=== PATIENT | female | born 1970 | race Caucasian/White ===

== ENCOUNTER 2017-04-16 11:13 | Observation (INO) | payer BC ==
[2017-04-16 10:48] LABS: BASOPHIL % 0.2 % (0.0-0.4); Bilirubin SMALL (NEGATIVE); COMPLETE URINE MICROSCOPIC? YES; Collection Type CCMS; Glucose NEGATIVE (NEGATIVE); Granulocytes % 77.2 % (36.0-66.0); Leukocyte Esterase 2+ (NEGATIVE); Lymphocytes % 13.8 % (24.0-44.0); Mean Cell Volume 84.8 fl (78-100); Mean Corpuscular Hemoglobin 27.2 pg (26-32); Mean Platelet Volume 8.5 fl (6-9.5); Monocytes % 7.8 % (0.0-12.0); Platelet Count 232 K/mm3 (150-450); Red Cell Distribution Width 14.1 % (11.5-14.0); White Blood Count 9.3 K/mm3 (4.0-10.5)
[2017-04-16 10:49] LABS: Bacteria MANY /HPF (NEGATIVE); Epithelial Cells MANY /HPF (FEW); WBC 15-25 /HPF (0-5)
--- NOTE | 2017-04-16 11:07 | XRAY ---
Indication: Left chest wall pain with edema to axilla. Comparison: February 19, 2016. PA/lateral chest demonstrates new left hilar opacity/fullness that warrants further evaluation with CT chest with contrast exam. Remaining heart, lungs, and bony thorax unremarkable.
[2017-04-16 11:13] LABS: ALBUMIN 3.7 g/dL (3.4-5.0); ALKALINE PHOSPHATASE 80 U/L (46-116); ANION GAP 14.3 MEQ/L (5-15); BLOOD UREA NITROGEN 8 mg/dL (9-20); CHLORIDE 101 mEq/L (98-107); Carbon Dioxide 27.6 mEq/L (21-32); Glucose 120 MG/DL (70-110); Potassium 4.2 mEq/L (3.5-5.1); SGOT/AST 20 U/L (15-37); SGPT/ALT 31 U/L (12-78); SODIUM 139 mEq/L (136-145); Total Protein 8.1 gm/dL (6.4-8.2)
[2017-04-16 11:14] LABS: TROPONIN < 0.017 ng/ml (0.000-0.056)
[2017-04-16] MEDS ORDERED: Nitrostat 0.4 MG (ED) SL ONE ×2 (11:39→12:05)
[2017-04-16] MEDS ORDERED: Sodium Chloride 0.9% 1000 ML 1,000 ML IV STA (11:39)
[2017-04-16] MEDS ORDERED: BABY ASPIRIN 81 MG CHEW PO ONE (11:39)
[2017-04-16] MEDS ORDERED: MORPHINE SULFATE 4 MG INJ IV ONE (11:44)
[2017-04-16] MEDS ORDERED: Zofran 4 MG/2 ML VIAL IV ONE (11:44)
[2017-04-16] MEDS ORDERED: ROCEPHIN 2 Gm-D5w 50ML BAG** 2 G/50 ML IVPB IV ONE ×2 (11:51→12:05)
[2017-04-16 12:00] LABS: INR 1.3 (0.8-3.0); PROTIME 14.7 SECONDS (9.95-12.35)
[2017-04-16] MEDS ORDERED: Zofran 4 MG/2 ML VIAL ONE (12:05)
[2017-04-16] MEDS ORDERED: BABY ASPIRIN 81 MG CHEW ONE (12:05)
[2017-04-16] MEDS ORDERED: Sodium Chloride 0.9% 1000 ML 1,000 ML ONE (12:05)
[2017-04-16] MEDS ORDERED: MORPHINE SULFATE 4 MG INJ ONE (12:06)
--- NOTE | 2017-04-16 12:08 | ERPHSYRPT ---
- History of Present Illness Time Seen by Provider: 04/16/17 11:45 Historian: patient Exam Limitations: clinical condition Patient Subjective Stated Complaint: cp fever Triage Nursing Assessment: lt side cp for 2 days. nausea for 2 days. fever since yesterday with headache. [facility] sent pt here. on arrival, pt c/o slight headache and pinpoint nonradiating lt cp. deneis injury. skin warm and dry. nausea with no vomiting Physician History: PATIENT COMPLAINS OF LEFT SIDED SHARP PAINS IN LEFT CHEST FOR 2 DAYS, ASSOCIATE WITH DYSPNEA AND PAIN UPON EXERTION, FEVER, URGENCY WITH FREQUENCY. DENIES RADIATION OF PAIN TO NECK, JAW OR ARMS. Timing/Duration: day(s) Activities at Onset: none Quality: sharpness, stabbing Location: other (LEFT PARASTERNAL) Severity of Pain-Max: moderate Severity of Pain-Current: moderate Modifying Factors: Improves With: change in position, other (INSPIRATION) Associated Symptoms: hurts to breathe Prior Chest Pain/Cardiac Workup: stress test Nitro Today/Relief: 0.4 mg x 1, provided by ED Aspirin Treatment Today: no aspirin today, 81 mg x 4, provided by ED Allergies/Adverse Reactions: codeine Adverse Reaction (Verified 04/16/17 11:25) Vomiting Hx Tetanus, Diphtheria Vaccination/Date Given: Yes Hx Influenza Vaccination/Date Given: No Hx Pneumococcal Vaccination/Date Given: No Immunizations Up to Date: Yes - Review of Systems Constitutional: Fever Eyes: No Symptoms Ears, Nose, & Throat: No Symptoms Respiratory: No Symptoms, No Cough, No Dyspnea Cardiac: Chest Pain, No Edema, No Syncope Abdominal/Gastrointestinal: No Symptoms, No Abdominal Pain, No Nausea, No Vomiting, No Diarrhea Genitourinary Symptoms: Dysuria, Frequency Musculoskeletal: No Back Pain, No Neck Pain Skin: No Rash Neurological: No Symptoms, No Dizziness, No Focal Weakness, No Sensory Changes Psychological: No Symptoms Endocrine: No Symptoms All Other Systems: Reviewed and Negative - Past Medical History Pertinent Past Medical History: Yes Neurological History: No Pertinent History ENT History: No Pertinent History Cardiac History: No Pertinent History Respiratory History: No Pertinent History Endocrine Medical History: No Pertinent History, Hypothyroidism Musculoskeletal History: Fractures GI Medical History: No Pertinent History History: Other Psycho-Social History: No Pertinent History Female Reproductive Disorders: No Pertinent History Other Medical History: UTI, STATES HOSPITALIZED A CHILD FOR KIDNEY PROBLEMS BUT UNSURE OF DETAILS, ANKLE FRACTURE - Past Surgical History Past Surgical History: Yes Neuro Surgical History: No Pertinent History Cardiac: No Pertinent History Respiratory: No Pertinent History Gastrointestinal: Appendectomy Genitourinary: No Pertinent History Musculoskeletal: Orthopedic Surgery Female Surgical History: No Pertinent History Other Surgical History: ANKLE FRACTURE-hardware - Social History Smoking Status: Never smoker Exposure to second hand smoke: No Drug Use: none Patient Lives Alone: No - Female History Hx Last Menstrual Period: 1 week - Nursing Vital Signs Nursing Vital Signs: Initial Vital Signs Temperature 99.5 F 04/16/17 11:18 Pulse Rate 102 H 04/16/17 11:18 Respiratory Rate 18 04/16/17 11:18 Blood Pressure 137/86 04/16/17 11:18 O2 Sat by Pulse Oximetry 96 04/16/17 11:18 Pain Scale Pain Intensity 0 - Physical Exam General Appearance: no apparent distress, alert Eye Exam: PERRL/EOMI, eyes nml inspection Ears, Nose, Throat Exam: normal ENT inspection, moist mucous membranes Neck Exam: normal inspection, non-tender, supple, full range of motion Respiratory Exam: normal breath sounds, chest tenderness (MARKED TENDERNESS LEFT LATERAL CHEST WALL 4TH TO 6TH ICS), lungs clear, No respiratory distress Cardiovascular Exam: regular rate/rhythm, normal heart sounds Gastrointestinal/Abdomen Exam: soft, normal bowel sounds, No tenderness, No mass Back Exam: normal inspection, No CVA tenderness, No vertebral tenderness Extremity Exam: normal inspection, normal range of motion Neurologic Exam: alert, oriented x 3, cooperative, normal mood/affect, sensation nml, No motor deficits Skin Exam: normal color, warm, dry SpO2 Interpretation: normal SpO2: 96 Oxygen Delivery: Room Air - Course EKG Interpreted by Me: RATE, Sinus Rhythm, Sinus Tach (INTRAVENTRICULAR CONDUCTION DELAY), Left Bundle Branch Block - Radiology Exams Chest X-ray Interpretation: Discussed w/ radiologist - CT Exams Chest CT Interpretation: Discussed w/radiologist (LEFT UPPER LOBE CONSOLIDATING AIRSPACE DISEASE WITH TINY EFFUSION ) Ordered Tests: Active Orders 24 hr Category Date Time Status Up Ad Monica ROUTINE Activity 04/16/17 14:56 Ordered Admission/Status Order ROUTINE Care 04/16/17 14:56 Ordered Breast Trimmer STAT Care 04/16/17 11:39 Active Code Status Order ROUTINE Care 04/16/17 14:56 Ordered IV Care Q6H Care 04/16/17 14:56 Ordered IV Insertion STAT Care 04/16/17 11:48 Active Oxygen-ED Only NASAL CANNULA 2 lpm Care 04/16/17 11:39 Active Ibrahima Hernandez, Apply ROUTINE Care 04/16/17 14:56 Ordered Telemetry ROUTINE Care 04/16/17 14:56 Ordered Vital Signs Q4H Care 04/16/17 14:56 Ordered Weight,Daily 0600 Care 04/16/17 14:56 Ordered Regular Diet Diet 04/16/17 Dinner Ordered CHEST 2 VIEWS (PA AND LAT) Routine Exams 04/16/17 Completed CTA CHEST W AND/OR WO [CT] Stat Exams 04/16/17 12:08 Completed BLOOD CULTURE Stat Lab 04/16/17 12:10 Received CBC W DIFF Stat Lab 04/16/17 10:27 Completed CMP Stat Lab 04/16/17 10:27 Completed D-DIMER QUANTITATION Stat Lab 04/16/17 10:27 Completed NT PRO BNP Stat Lab 04/16/17 10:27 Completed PROTIME WITH INR Stat Lab 04/16/17 11:39 Completed TROPONIN Q3H Lab 04/16/17 11:45 Completed TROPONIN Q3H Lab 04/16/17 14:45 Ordered TROPONIN Q3H Lab 04/16/17 17:45 Ordered TROPONIN Q3H Lab 04/16/17 20:45 Ordered TROPONIN Q3H Lab 04/16/17 23:45 Ordered TROPONIN Stat Lab 04/16/17 10:27 Completed TSH, 3RD Generation Stat Lab 04/16/17 10:27 Completed UA W/ MICROSCOPIC Stat Lab 04/16/17 10:27 Completed EKG ONCE RT 04/16/17 10:56 Completed Oxygen NASAL CANNULA 2 lpm RT 04/16/17 14:56 Ordered Pulse Oximetry CONTINUOUS RT 04/16/17 14:58 Ordered Transfer Order Routine Transfer 04/16/17 14:55 Ordered Medication Summary Discontinued Medications Generic Name Dose Route Start Last Admin Trade Name Freq PRN Reason Stop Dose Admin Aspirin 324 mg 04/16/17 11:39 04/16/17 12:08 Baby Aspirin 81 Mg Chew PO 04/16/17 11:40 324 mg STAT ONE Administration Aspirin Confirm 04/16/17 12:05 Baby Aspirin 81 Mg Chew Administered 04/16/17 12:06 Dose 324 mg .ROUTE .STK-MED ONE Sodium Chloride 1,000 mls @ 500 mls/hr 04/16/17 11:39 04/16/17 12:11 Sodium Chloride 0.9% 1000 Ml IV 04/16/17 13:38 500 mls/hr .Q2H STA Administration Ceftriaxone Sodium/Dextrose 2 g in 50 mls @ 100 mls/hr 04/16/17 11:51 12:16 Rocephin 2 Gm-D5w 50ml Bag IV 04/16/17 12:20 100 mls/hr STAT ONE Administration Sodium Chloride Confirm 04/16/17 12:05 Sodium Chloride 0.9% 1000 Ml Administered 04/16/17 12:06 Dose 1,000 mls @ ud .ROUTE .STK-MED ONE Ceftriaxone Sodium/Dextrose Confirm 04/16/17 12:05 Rocephin 2 Gm-D5w 50ml Bag Administered 04/16/17 12:06 Dose 2 g in 50 mls @ ud IV .STK-MED ONE Azithromycin 500 mg in 250 mls @ 250 mls/hr 04/16/17 13:40 04/16/17 13:48 Zithromax 500 Mg/ 250 Ml Nacl Premix IV 04/16/17 14:39 250 mls/hr STAT STA Administration Azithromycin Confirm 04/16/17 13:44 Zithromax 500 Mg/ 250 Ml Nacl Premix Administered 04/16/17 13:45 Dose 500 mg in 250 mls @ ud IV .STK-MED ONE Azithromycin Confirm 04/16/17 13:46 Zithromax 500 Mg/ 250 Ml Nacl Premix Administered 04/16/17 13:47 Dose 500 mg in 250 mls @ ud IV .STK-MED ONE Morphine Sulfate 4 mg 04/16/17 11:44 04/16/17 12:14 Morphine Sulfate 4 Mg Inj IV 04/16/17 11:45 4 mg STAT ONE Administration Morphine Sulfate Confirm 04/16/17 12:06 Morphine Sulfate 4 Mg Inj Administered 04/16/17 12:07 Dose 4 mg .ROUTE .STK-MED ONE Nitroglycerin 0.4 mg 04/16/17 11:39 04/16/17 12:11 Nitrostat 0.4 Mg (Ed) SL 04/16/17 11:40 0.4 mg STAT ONE Administration Nitroglycerin Confirm 04/16/17 12:05 Nitrostat 0.4 Mg (Ed) Administered 04/16/17 12:06 Dose 0.4 mg SL .STK-MED ONE Ondansetron HCl 4 mg 04/16/17 11:44 04/16/17 12:11 Zofran 4 Mg/2 Ml Vial IV 04/16/17 11:45 4 mg STAT ONE Administration Ondansetron HCl Confirm 04/16/17 12:05 Zofran 4 Mg/2 Ml Vial Administered 04/16/17 12:06 Dose 4 mg .ROUTE .STK-MED ONE Lab/Rad Data: Laboratory Result Diagrams 04/16/17 10:27 04/16/17 10:27 Laboratory Results 04/16/17 04/16/17 04/16/17 Range/Units 11:45 11:39 10:27 WBC (4.0-10.5) K/mm3 RBC (4.1-5.4) M/mm3 Hgb (12.0-16.0) gm/dl Hct (35-47) % MCV (78-100) fl MCH (26-32) pg MCHC (32-36) g/dl RDW (11.5-14.0) % Plt Count (150-450) K/mm3 MPV (6-9.5) fl Gran % (36.0-66.0) % Lymphocytes % (24.0-44.0) % Monocytes % (0.0-12.0) % Eosinophils % (0.00-5.0) % Basophils % (0.0-0.4) % Basophils # (0-0.4) INR 1.30 (0.8-3.0) D-Dimer (0-500) ng/mL Sodium (136-145) mEq/L Potassium (3.5-5.1) mEq/L Chloride (98-107) mEq/L Carbon Dioxide (21-32) mEq/L Anion Gap (5-15) MEQ/L BUN (9-20) mg/dL Creatinine (0.55-1.30) mg/dl Estimated GFR ML/MIN Glucose (70-110) MG/DL Calcium (8.5-10.1) mg/dL Total Bilirubin (0.2-1.0) mg/dL AST (15-37) U/L ALT (12-78) U/L Alkaline Phosphatase (46-116) U/L Troponin I < 0.017 (0.000-0.056) ng/ml NT-Pro-B Natriuret Pep (0-125) pg/ml Serum Total Protein (6.4-8.2) gm/dL Albumin (3.4-5.0) g/dL TSH 3rd Generation (0.358-3.740) mIU/L Ur Collection Type CCMS Urine Color YELLOW (YELLOW) Urine Appearance HAZY (CLEAR) Urine pH 5.0 (5-6) Ur Specific [place] 1.015 (1.005-1.025) Urine Protein 1+ (Negative) Urine Ketones SMALL (NEGATIVE) Urine Blood 5-10 (0-5) Irving/ul Urine Nitrite POSITIVE (NEGATIVE) Urine Bilirubin SMALL (NEGATIVE) Urine Urobilinogen NORMAL (0-1) mg/dL Ur Leukocyte Esterase 2+ (NEGATIVE) Urine Microscopic RBC 0-2 (0-2) /HPF Urine Microscopic WBC 15-25 (0-5) /HPF Ur Epithelial Cells MANY (FEW) /HPF Urine Bacteria MANY (NEGATIVE) /HPF Urine Glucose NEGATIVE (NEGATIVE) mg/dL Specimen Received 04/16/17 1027 04/16/17 04/16/17 04/16/17 Range/Units 10:27 10:27 10:27 WBC 9.3 (4.0-10.5) K/mm3 RBC 4.60 (4.1-5.4) M/mm3 Hgb 12.5 (12.0-16.0) gm/dl Hct 39.0 (35-47) % MCV 84.8 (78-100) fl MCH 27.2 (26-32) pg MCHC 32.1 (32-36) g/dl RDW 14.1 H (11.5-14.0) % Plt Count 232 (150-450) K/mm3 MPV 8.5 (6-9.5) fl Gran % 77.2 H (36.0-66.0) % Lymphocytes % 13.8 L (24.0-44.0) % Monocytes % 7.8 (0.0-12.0) % Eosinophils % 1.0 (0.00-5.0) % Basophils % 0.2 (0.0-0.4) % Basophils # 0.02 (0-0.4) INR (0.8-3.0) D-Dimer 355 (0-500) ng/mL Sodium 139 (136-145) mEq/L Potassium 4.2 (3.5-5.1) mEq/L Chloride 101 (98-107) mEq/L Carbon Dioxide 27.6 (21-32) mEq/L Anion Gap 14.3 (5-15) MEQ/L BUN 8 L (9-20) mg/dL Creatinine 1.10 (0.55-1.30) mg/dl Estimated GFR 56 ML/MIN Glucose 120 H (70-110) MG/DL Calcium 9.5 (8.5-10.1) mg/dL Total Bilirubin 1.10 H (0.2-1.0) mg/dL AST 20 (15-37) U/L ALT 31 (12-78) U/L Alkaline Phosphatase 80 (46-116) U/L Troponin I < 0.017 (0.000-0.056) ng/ml NT-Pro-B Natriuret Pep 29 (0-125) pg/ml Serum Total Protein 8.1 (6.4-8.2) gm/dL Albumin 3.7 (3.4-5.0) g/dL TSH 3rd Generation 1.083 (0.358-3.740) mIU/L Ur Collection Type Urine Color (YELLOW) Urine Appearance (CLEAR) Urine pH (5-6) Ur Specific [place] (1.005-1.025) Urine Protein (Negative) Urine Ketones (NEGATIVE) Urine Blood (0-5) Irving/ul Urine Nitrite (NEGATIVE) Urine Bilirubin (NEGATIVE) Urine Urobilinogen (0-1) mg/dL Ur Leukocyte Esterase (NEGATIVE) Urine Microscopic RBC (0-2) /HPF Urine Microscopic WBC (0-5) /HPF Ur Epithelial Cells (FEW) /HPF Urine Bacteria (NEGATIVE) /HPF Urine Glucose (NEGATIVE) mg/dL Specimen Received - Progress Progress Note: 04/16/17 12:39 PATIENT GIVEN IV NORMAL SALINE AT 500ML/HR, NITROGLYCERIN 0.4MG SL, ZOFRAN 4MG, MORPHNE 4MG IV, AND AFTER 2 SETS OF BLOOD CULTURES OBTAIN, ROCEPHIN 2GM IVPB FOLLOWED BY ZITHROMAX 500MG IVPB 04/16/17 13:37 Blood Culture(s) Obtained: Yes Antibiotics given: Yes Discussed with : Geno (DISCUSSED WITH DR SKINNER AT 1450 FOR ADMISSION) - Departure Time of Disposition: 15:00 Departure Disposition: Observation Clinical Impression: PNEMONIA, URINARY TRACT INFECTION, ACUTE CHEST PAIN Condition: Stable Critical Care Time: No Referrals: MARINE SERRANO [Primary Care Provider] -
--- NOTE | 2017-04-16 13:22 | XRAY ---
Indication: Sharp left chest pain, tiredness, and headache for 2 days. Abnormal chest x-ray. High blood pressure. Conventional contrast enhanced CTA chest was performed using 80 cc Isovue 370 contrast. Two-dimensional sagittal and coronal reformatted images obtained. Comparison: None Heart is not enlarged. Aorta is normal in course and caliber without aneurysm/dissection. No central pulmonary embolus or pathologic mediastinal/hilar/axillary lymphadenopathy. Examination of the lung parenchyma demonstrates mid left upper lobe consolidating air space opacity anteriorly with air bronchograms and tiny effusion. Minimal left lung base atelectasis/scarring. Tiny right apical calcified granuloma. Bony thorax intact with mild degenerative changes throughout the spine. Limited upper abdomen demonstrates fatty liver, 14.2 cm splenomegaly, and partially visualized gallstones, the largest measuring 2.8 cm. Impression: 1. Left upper lobe consolidating airspace disease with tiny effusion corresponding to the chest radiograph finding. 2. Remaining CTA chest is negative. 2. Incidental fatty liver, splenomegaly, and gallstones. CT DI 28.13
[2017-04-16] MEDS ORDERED: Zithromax 500 MG/ 250 ML NaCl Premix 500 MG/250 ML IVPB IV STA (13:40)
[2017-04-16] MEDS ORDERED: Zithromax 500 MG/ 250 ML NaCl Premix 500 MG/250 ML IVPB IV ONE ×2 (13:44→13:46)
[2017-04-16] MEDS ORDERED: DUONEB 0.5-3 MG/3 ml Neb IH SCH (15:00)
[2017-04-16] MEDS ORDERED: Nitrostat 0.4 MG Tablet SL PRN (15:41)
[2017-04-16] MEDS: TYLENOL 325 MG PO PRN (15:54)
[2017-04-16] MEDS: Sodium Chloride 0.9% 1000 ML 1,000 ML IV SCH (16:00)
[2017-04-16] MEDS ORDERED: DUONEB 0.5-3 MG/3 ml Neb IH PRN (16:34)
[2017-04-16] MEDS: Norco 10/325 MG Tablet PO PRN (18:55)
[2017-04-17] MEDS: Sodium Chloride 0.9% 1000 ML 1,000 ML IV SCH ×3 (01:04→23:24)
[2017-04-17] MEDS: Norco 10/325 MG Tablet PO PRN ×2 (03:08→11:36)
[2017-04-17] MEDS: SYNTHROID 25 MCG PO SCH (10:17)
[2017-04-17] MEDS: ROCEPHIN 1 Gm-D5w 50 ml Bag** 1 G/50 ML IVPB IV SCH (10:21)
[2017-04-17] MEDS: Zithromax 500 MG/ 250 ML NaCl Premix 500 MG/250 ML IVPB IV SCH (11:04)
--- NOTE | 2017-04-17 12:17 | PCM.HP ---
History of Present Illness - Chief Complaint Chief Complaint: Pneumonia, UTI, Acute chest pain History of Present Illness: is a 47 year old female.left side chest pain for 2 days. nausea for 2 days. fever since yesterday with headache. went to [facility] and [facility] sent pt here - Review of Systems Constitutional: No Fever, No Chills Eyes: No Symptoms Ears, Nose, & Throat: No Symptoms Respiratory: No Cough, No Short Of Breath Cardiac: Chest Pain, No Edema, No Syncope Abdominal/Gastrointestinal: No Abdominal Pain, No Nausea, No Vomiting, No Diarrhea Genitourinary Symptoms: No Dysuria Musculoskeletal: No Back Pain, No Neck Pain Skin: No Rash Neurological: No Dizziness, No Focal Weakness, No Sensory Changes Psychological: No Symptoms Endocrine: No Symptoms Hematologic/Lymphatic: No Symptoms Immunological/Allergic: No Symptoms Medications & Allergies Home Medications: Home Medication List Levothyroxine Sodium 25 Mcg [Synthroid 25 Mcg] 25 mcg PO DAILY #0 tablet 02/20/16 [Rx Confirmed 04/16/17] Allergies/Adverse Reactions: Allergies Allergy/AdvReac Type Severity Reaction Status Date / Time codeine AdvReac Vomiting Verified 04/16/17 15:15 - Past Medical History Past Medical History: No Neurological History: No Pertinent History ENT History: No Pertinent History Cardiac History: No Pertinent History Respiratory History: Pneumonia Endocrine Medical History: No Pertinent History, Hypothyroidism Musculoskelatal History: Fractures GI Medical History: No Pertinent History History: Other Pyscho-Social History: No Pertinent History Reproductive Disorders: No Pertinent History Comment: STATES HOSPITALIZED A CHILD FOR KIDNEY PROBLEMS BUT UNSURE OF DETAILS, ANKLE FRACTURE - Female History Hx Last Menstrual Period: 1 week Are you now?: No - Past Surgical History Past Surgical History: Yes Neuro Surgical History: No Pertinent History Cardiac History: No Pertinent History Respiratory Surgery: No Pertinent History GI Surgical History: Appendectomy Genitourinary Surgical Hx: No Pertinent History Musculskeletal Surgical Hx: Orthopedic Surgery Female Surgical History: No Pertinent History Other Surgical History: ANKLE FRACTURE-hardware - Social History Smoking Status: Never smoker Exposure to second hand smoke: No Alcohol: None Drug Use: none - Physical Exam Vital Signs: Vital Signs - 24 hr Temp Pulse Resp BP Pulse Ox 04/17/17 08:25 81 18 98 04/17/17 08:00 18 04/17/17 07:25 97.9 F 79 20 120/57 99 04/17/17 04:00 98.4 F 91 H 17 117/72 94 L 04/16/17 23:53 99.1 F 97 H 18 108/72 97 04/16/17 20:00 98.9 F 109 H 15 95/50 97 04/16/17 16:35 93 H 18 98 04/16/17 15:16 99.6 F 94 H 18 111/62 98 04/16/17 15:00 96 04/16/17 14:47 93 H 18 103/66 100 04/16/17 14:18 54 L 18 123/72 100 04/16/17 13:13 92 H 18 139/65 04/16/17 12:20 97 H 18 136/67 96 Oxygen-Last 24 hours O2 Percentage 2 Liters = 28% O2 Percentage 2 Liters = 28% O2 Percentage 2 Liters = 28% O2 Percentage 2 Liters = 28% O2 Percentage 2 Liters = 28% O2 Percentage 2 Liters = 28% General Appearance: no apparent distress, alert Neurologic Exam: alert, oriented x 3, cooperative, normal mood/affect, nml cerebellar function, nml station & gait, sensation nml, No motor deficits Eye Exam: PERRL/EOMI, eyes nml inspection Ears, Nose, Throat Exam: normal ENT inspection, TMs normal, pharynx normal, moist mucous membranes Neck Exam: normal inspection, non-tender, supple, full range of motion Respiratory Exam: crackles/rales, rhonchi, No respiratory distress Cardiovascular Exam: regular rate/rhythm, normal heart sounds, normal peripheral pulses Gastrointestinal/Abdomen Exam: soft, normal bowel sounds, No tenderness, No mass Back Exam: normal inspection, normal range of motion, No CVA tenderness, No vertebral tenderness Extremity Exam: normal inspection, normal range of motion, pelvis stable Skin Exam: normal color, warm, dry, No rash Lymphatic Exam: No adenopathy Results - Labs Lab/Micro Results: Lab Results-Last 24 Hours 04/16/17 04/16/17 04/16/17 Range/Units 15:05 17:54 21:00 Troponin I < 0.017 < 0.017 < 0.017 (0.000-0.056) ng/ml 04/16/17 Range/Units 23:55 Troponin I < 0.017 (0.000-0.056) ng/ml Microbiology 04/16/17 18:15 Urine Culture - Preliminary Urine, Void <10K NORMAL SKIN VIDYA PROBABLE SKIN CONTAMINANT - Other Procedures and Tests Respiratory Therapy 04/16/17 14:56 Oxygen NASAL CANNULA 2 lpm 04/16/17 16:14 Respiratory Nebulizer UD Assessment/Plan (1) Pneumonia Current Visit: Yes Status: Acute Qualifiers: Pneumonia type: due to unspecified organism Laterality: left Lung location: upper lobe of lung Qualified Code(s): J18.1 - Lobar pneumonia, unspecified organism Code(s): J18.9 - PNEUMONIA, UNSPECIFIED ORGANISM (2) UTI (urinary tract infection) Current Visit: Yes Status: Acute Qualifiers: Urinary tract infection type: acute pyelonephritis Qualified Code(s): N10 - Acute pyelonephritis Code(s): N39.0 - URINARY TRACT INFECTION, SITE NOT SPECIFIED
[2017-04-17] MEDS: CORTISPORIN EAR DROPS Solution 1OML OT SCH ×3 (12:47→21:14)
[2017-04-17] MEDS: solu-MEDROL 40 MG IV SCH ×2 (13:45→21:13)
[2017-04-18] MEDS: TYLENOL 325 MG PO PRN (03:26)
[2017-04-18] MEDS: solu-MEDROL 40 MG IV SCH ×2 (05:32→12:51)
--- NOTE | 2017-04-18 08:29 | PCM.NOTE ---
Date and Time: 04/18/17826 Subjective Assessment: doing ok - Review of Systems Constitutional: No Fever, No Chills Eyes: No Symptoms Ears, Nose, & Throat: No Symptoms Respiratory: Short Of Breath, Wheezing, No Cough Cardiac: Chest Pain, No Edema, No Syncope Abdominal/Gastrointestinal: No Abdominal Pain, No Nausea, No Vomiting, No Diarrhea Genitourinary Symptoms: No Dysuria Musculoskeletal: No Back Pain, No Neck Pain Skin: No Rash Neurological: No Dizziness, No Focal Weakness, No Sensory Changes Psychological: No Symptoms Endocrine: No Symptoms Hematologic/Lymphatic: No Symptoms Immunological/Allergic: No Symptoms Objective Exam General Appearance: mild distress, alert Neurologic Exam: alert, oriented x 3, cooperative, normal mood/affect, nml cerebellar function, sensation nml, No motor deficits Skin Exam: normal color, warm, dry Eye Exam: PERRL, EOMI, eyes nml inspection Ears, Nose, Throat Exam: normal ENT inspection, pharynx normal, moist mucous membranes Neck Exam: normal inspection, non-tender, supple, full range of motion Respiratory Exam: diminished breath sounds, crackles/rales, rhonchi, wheezing, No respiratory distress Cardiovascular Exam: regular rate/rhythm, normal heart sounds Gastrointestinal/Abdomen Exam: soft, No tenderness, No mass Extremity Exam: normal inspection, normal range of motion Back Exam: normal inspection, normal range of motion, No CVA tenderness, No vertebral tenderness Pelvic Exam: deferred Rectal Exam: deferred OBJECTIVE DATA Vital Signs: Vital Signs - 24 hr Temp Pulse Resp BP Pulse Ox 04/18/17 07:35 91 H 16 97 04/18/17 07:28 97.7 F 80 18 126/65 95 04/18/17 03:59 97.9 F 80 18 123/58 95 04/18/17 00:00 97.9 F 74 16 103/54 93 L 04/17/17 20:00 97.7 F 90 16 99/57 93 L 04/17/17 19:43 65 18 94 L 04/17/17 16:00 16 04/17/17 15:27 98 F 84 18 99/60 97 04/17/17 12:21 98.4 F 82 18 98/58 98 04/17/17 12:00 18 Pain Assessment - Last Documented Pain Intensity 4 Pain Scale Used 0-10 Pain Scale Intake and Output: Intake & Output 04/15/17 04/16/17 04/17/17 04/18/17 11:59 11:59 11:59 11:59 Intake Total 2328 2043 Balance 2328 2043 Weight 117.934 kg 120.247 kg Radiology Exams: 0012 CT/CTA CHEST W AND/OR WO Indication: Sharp left chest pain, tiredness, and headache for 2 days. Abnormal chest x-ray. High blood pressure. Conventional contrast enhanced CTA chest was performed using 80 cc Isovue 370 contrast. Two-dimensional sagittal and coronal reformatted images obtained. Comparison: None Heart is not enlarged. Aorta is normal in course and caliber without aneurysm/dissection. No central pulmonary embolus or pathologic mediastinal/hilar/axillary lymphadenopathy. Examination of the lung parenchyma demonstrates mid left upper lobe consolidating air space opacity anteriorly with air bronchograms and tiny effusion. Minimal left lung base atelectasis/scarring. Tiny right apical calcified granuloma. Bony thorax intact with mild degenerative changes throughout the spine. Limited upper abdomen demonstrates fatty liver, 14.2 cm splenomegaly, and partially visualized gallstones, the largest measuring 2.8 cm. Impression: 1. Left upper lobe consolidating airspace disease with tiny effusion corresponding to the chest radiograph finding. 2. Remaining CTA chest is negative. 2. Incidental fatty liver, splenomegaly, and gallstones Assessment/Plan (1) Pneumonia Current Visit: Yes Status: Acute Qualifiers: Pneumonia type: due to unspecified organism Laterality: left Lung location: upper lobe of lung Qualified Code(s): J18.1 - Lobar pneumonia, unspecified organism Assessment & Plan: Chief Complaint Diagnosis Pneumonia, UTI, Acute chest pain Allergies Allergy/AdvReac Type Severity Reaction Status Date / Time codeine AdvReac Vomiting Verified 04/16/17 15:15 Vital Signs (Last 24 hours) Temp Pulse Resp BP Pulse Ox 04/18/17 07:35 91 H 16 97 04/18/17 07:28 97.7 F 80 18 126/65 95 04/18/17 03:59 97.9 F 80 18 123/58 95 04/18/17 00:00 97.9 F 74 16 103/54 93 L 04/17/17 20:00 97.7 F 90 16 99/57 93 L 04/17/17 19:43 65 18 94 L 04/17/17 16:00 16 04/17/17 15:27 98 F 84 18 99/60 97 04/17/17 12:21 98.4 F 82 18 98/58 98 04/17/17 12:00 18 Current Medications Generic Name Dose Route Start Last Admin Trade Name Freq PRN Reason Stop Dose Admin Acetaminophen 650 mg 04/16/17 14:59 04/18/17 03:26 Tylenol 325 Mg PO 05/16/17 14:58 650 mg Q4H PRN PRN Administration PAIN AND/OR FEVER Hydrocodone Bitart/Acetaminophen 1 tab 04/16/17 15:41 04/17/17 11:36 [place] 10/325 Mg Tablet PO 04/21/17 15:40 1 tab Q4H PRN PRN Administration Albuterol/Ipratropium 3 ml 04/16/17 16:34 Duoneb 0.5-3 Mg/3 Ml Neb IH 05/16/17 16:33 Q4HPRN PRN SHORTNESS OF BREATH/WHEEZING Azithromycin 500 mg in 250 mls @ 250 mls/hr 04/17/17 10:00 04/17/17 11:04 Zithromax 500 Mg/ 250 Ml Nacl Premix IV 05/17/17 09:59 250 mls/hr Q24H10 MARY Administration Ceftriaxone Sodium/Dextrose 1 g in 50 mls @ 100 mls/hr 04/17/17 10:00 10:21 Rocephin 1 Gm-D5w 50 Ml Bag IV 05/17/17 09:59 100 mls/hr Q24H10 MARY Administration Sodium Chloride 1,000 mls @ 100 mls/hr 04/16/17 15:00 04/17/17 23:24 Sodium Chloride 0.9% 1000 Ml IV 05/16/17 14:59 100 mls/hr .Q10H MARY Administration Levothyroxine Sodium 25 mcg 04/17/17 10:00 04/17/17 10:17 Synthroid 25 Mcg PO 05/17/17 09:59 25 mcg QAM MARY Administration Methylprednisolone Sodium Succinate 40 mg 04/17/17 14:00 04/18/17 05:32 Solu-Medrol 40 Mg IV 05/17/17 13:59 40 mg Q8HT MARY Administration Neomycin/Polymyxin/Hydrocortisone 10 ml 04/17/17 13:00 04/17/17 21:14 Cortisporin Ear Drops Solution 1oml OT 05/17/17 12:59 10 ml QID MARY Administration Nitroglycerin 0.4 mg 04/16/17 15:41 Nitrostat 0.4 Mg Tablet SL 05/16/17 15:40 PRN PRN Discontinued Medications Generic Name Dose Route Start Last Admin Trade Name Frekalpana PRN Reason Stop Dose Admin Albuterol/Ipratropium 3 ml 04/16/17 15:00 04/16/17 16:04 Duoneb 0.5-3 Mg/3 Ml Neb IH 05/16/17 14:59 3 ml Q4HRT MARY Administration Aspirin 324 mg 04/16/17 11:39 04/16/17 12:08 Baby Aspirin 81 Mg Chew PO 04/16/17 11:40 324 mg STAT ONE Administration Aspirin Confirm 04/16/17 12:05 Baby Aspirin 81 Mg Chew Administered 04/16/17 12:06 Dose 324 mg .ROUTE .STK-MED ONE Sodium Chloride 1,000 mls @ 500 mls/hr 04/16/17 11:39 04/16/17 12:11 Sodium Chloride 0.9% 1000 Ml IV 04/16/17 13:38 500 mls/hr .Q2H STA Administration Ceftriaxone Sodium/Dextrose 2 g in 50 mls @ 100 mls/hr 04/16/17 11:51 12:16 Rocephin 2 Gm-D5w 50ml Bag IV 04/16/17 12:20 100 mls/hr STAT ONE Administration Sodium Chloride Confirm 04/16/17 12:05 Sodium Chloride 0.9% 1000 Ml Administered 04/16/17 12:06 Dose 1,000 mls @ ud .ROUTE .STK-MED ONE Ceftriaxone Sodium/Dextrose Confirm 04/16/17 12:05 Rocephin 2 Gm-D5w 50ml Bag Administered 04/16/17 12:06 Dose 2 g in 50 mls @ ud IV .STK-MED ONE Azithromycin 500 mg in 250 mls @ 250 mls/hr 04/16/17 13:40 04/16/17 13:48 Zithromax 500 Mg/ 250 Ml Nacl Premix IV 04/16/17 14:39 250 mls/hr STAT STA Administration Azithromycin Confirm 04/16/17 13:44 Zithromax 500 Mg/ 250 Ml Nacl Premix Administered 04/16/17 13:45 Dose 500 mg in 250 mls @ ud IV .STK-MED ONE Azithromycin Confirm 04/16/17 13:46 Zithromax 500 Mg/ 250 Ml Nacl Premix Administered 04/16/17 13:47 Dose 500 mg in 250 mls @ ud IV .STK-MED ONE Morphine Sulfate 4 mg 04/16/17 11:44 04/16/17 12:14 Morphine Sulfate 4 Mg Inj IV 04/16/17 11:45 4 mg STAT ONE Administration Morphine Sulfate Confirm 04/16/17 12:06 Morphine Sulfate 4 Mg Inj Administered 04/16/17 12:07 Dose 4 mg .ROUTE .STK-MED ONE Nitroglycerin 0.4 mg 04/16/17 11:39 04/16/17 12:11 Nitrostat 0.4 Mg (Ed) SL 04/16/17 11:40 0.4 mg STAT ONE Administration Nitroglycerin Confirm 04/16/17 12:05 Nitrostat 0.4 Mg (Ed) Administered 04/16/17 12:06 Dose 0.4 mg SL .STK-MED ONE Ondansetron HCl 4 mg 04/16/17 11:44 04/16/17 12:11 Zofran 4 Mg/2 Ml Vial IV 04/16/17 11:45 4 mg STAT ONE Administration Ondansetron HCl Confirm 04/16/17 12:05 Zofran 4 Mg/2 Ml Vial Administered 04/16/17 12:06 Dose 4 mg .ROUTE .STK-MED ONE Intake & Output (Last 24 hours) 04/15/17 04/16/17 04/17/17 04/18/17 11:59 11:59 11:59 11:59 Intake Total 2328 2043 Balance 2328 2043 Weight 114.305 kg 117.934 kg 120.247 kg Microbiology Results (Last 24 hours) 04/16/17 18:15 Urine, Void Urine Culture - Preliminary <10K NORMAL SKIN VIDYA PROBABLE SKIN CONTAMINANT Orders (Last 24 hours) Category Date Time Status Azithromycin 500 mg/250 ml [Zithromax 500 MG/ 250 ML Med 04/17/17 10:00 Active NaCl Premix] 500 mg in 250 ml IV Q24H10 Ceftriaxone 1 GM/50 ML PREMIX* [ROCEPHIN 1 Gm-D5w 50 ml Med 04/17/17 10:00 Active Bag] 1 g in 50 ml IV Q24H10 Levothyroxine Sodium 25 Mcg [Synthroid 25 Mcg] Med 04/17/17 10:00 Active 25 mcg PO QAM Methylprednisolone Sod Suc 40M [solu-MEDROL 40 MG] Med 04/17/17 14:00 Active 40 mg IV Q8HT Sean/Baci/Poly/Hc Ear Solution* [CORTISPORIN EAR DROPS Med 04/17/17 13:00 Active Solution 1OML] 10 ml OT QID Incentive Spirometry Assessmen UD RT 04/17/17 19:43 Active Patient Care Notes (Last 24 hours) 04/17/17 12:22 Nursing Note by Pam Cruz dr. at bedside Initialized on 04/17/17 12:22 - END OF NOTE Code(s): J18.9 - PNEUMONIA, UNSPECIFIED ORGANISM (2) UTI (urinary tract infection) Current Visit: Yes Status: Acute Qualifiers: Urinary tract infection type: acute pyelonephritis Qualified Code(s): N10 - Acute pyelonephritis Code(s): N39.0 - URINARY TRACT INFECTION, SITE NOT SPECIFIED
[2017-04-18] MEDS: SYNTHROID 25 MCG PO SCH (09:30)
[2017-04-18] MEDS: ROCEPHIN 1 Gm-D5w 50 ml Bag** 1 G/50 ML IVPB IV SCH (09:30)
[2017-04-18] MEDS: CORTISPORIN EAR DROPS Solution 1OML OT SCH ×2 (09:30→12:51)
[2017-04-18 10:30] LABS: Mean Cell Volume 83.6 fl (78-100); Mean Corpuscular Hemoglobin 27.3 pg (26-32); Mean Platelet Volume 8.7 fl (6-9.5); Platelet Count 265 K/mm3 (150-450); Red Cell Distribution Width 13.2 % (11.5-14.0); White Blood Count 12.4 K/mm3 (4.0-10.5)
--- NOTE | 2017-04-18 10:36 | XRAY ---
Indication: Pneumonia. Empyema. Comparison: April 16, 2017. PA/lateral chest demonstrates minimally worsening CT proven left upper lobe airspace opacity and tiny effusion. Remaining heart and right lung unremarkable.
[2017-04-18] MEDS: Zithromax 500 MG/ 250 ML NaCl Premix 500 MG/250 ML IVPB IV SCH (10:53)
[2017-04-18 11:52] LABS: ALBUMIN 2.9 g/dL (3.4-5.0); ALKALINE PHOSPHATASE 86 U/L (46-116); ANION GAP 15.3 MEQ/L (5-15); BLOOD UREA NITROGEN 8 mg/dL (9-20); CHLORIDE 104 mEq/L (98-107); Carbon Dioxide 25.3 mEq/L (21-32); Glucose 218 MG/DL (70-110); Potassium 3.8 mEq/L (3.5-5.1); SGOT/AST 34 U/L (15-37); SGPT/ALT 41 U/L (12-78); SODIUM 141 mEq/L (136-145); Total Protein 7.3 gm/dL (6.4-8.2)
[2017-04-18 12:11] VITALS: BP 133/62; PULSE 90; O2SAT 95
== END 2017-04-18 13:25 | disposition home or self-care (01) ==
LOC: ED 11:13 → SUPCPDRO 11:13 → EDSTATUS 11:13 → MED SURG 14:55 → INTOOBSV 14:55
PROVIDERS: ADMIT General Practice; ATTEND General Practice
DX: J18.1 Lobar pneumonia, unspecified organism (principal); N10 Acute pyelonephritis; E03.9 Hypothyroidism, unspecified
CPT/HCPCS: 36000; 36415; 71020; 71275; 80053; 81000; 83880; 84443; 84484; 85025; 85027; 85379; 85610; 87040; 87086; 93005; 93041; 93268; 94640; 94760; 96360; 96361; 96365; 96374; 96375; 99285; G0378; J0456; J0696; J2270; J2405; J2920; A9270-GY

== ENCOUNTER 2017-06-25 07:48 | Day surgery (SDC) | payer BC ==
[~2017-06-25 07:48] MED LIST: Lactated Ringers 1,000 ML IV SCH
[2017-06-25] MEDS ORDERED: DIPRIVAN 200 MG/20 ML IV ONE (07:49)
[2017-06-25] MEDS ORDERED: Versed 2 MG/2 ML Injection IV ONE (07:49)
[2017-06-25] MEDS ORDERED: Lactated Ringers 1,000 ML IV ONE (08:34)
[2017-06-25 12:31] VITALS: BP 142/89; PULSE 74; O2SAT 99
--- NOTE | 2017-06-26 08:03 | OP ---
SURGERY DATE: 06/25/17 SURGERY TIME: 1110 PREOPERATIVE DIAGNOSIS: 1. EPIGASTRIC ABDOMINAL PAIN. POSTOPERATIVE DIAGNOSIS: 1. GASTRITIS. 2. ANTRAL PEPTIC ULCER 3. GASTROESOPHAGEAL REFLUX DISEASE. 4. MILD GASTRIC POLYPOSIS. PROCEDURE: 1. EGD with biopsies. SURGEON: Dr. Pebbles Person. ANESTHESIA: MAC. ESTIMATED BLOOD LOSS: Minimal. COMPLICATIONS: None. SPECIMENS: 1. Antral biopsy. 2. Gastric polyp biopsies. 3. Distal esophageal biopsies, rule out Fatima's disease. PROCEDURE DETAILS: This is a 47 y/o female who presents to the office with epigastric pain. She also does appear to have cholelithiasis on previous imaging. Due to the site of her pain and her gastrointestinal related issues, we did set up an EGD. All risks, benefits, and alternatives regarding EGD were discussed with the patient preoperatively. She understands, agrees, and would like to proceed. She was seen again preoperatively. Any remaining questions answered. She was then placed in the left lateral decubitus position. MAC anesthesia was induced. A complete time-out was performed. The scope was inserted into the mouth, oropharynx, down into the esophagus, stomach, and duodenum. The duodenum was normal. In the stomach, the patient does have moderate gastritis in the antrum, mild in the upper stomach, moderate in the body. She had one antral peptic ulcer which was small and appeared benign. This was not bleeding at this time. She also had a few scattered small gastric polyps. None of these looked concerning. We took an antral biopsy to rule out Helicobacter pylori disease and then I took multiple specimens from the different gastric polyps as biopsies and these were sent separately to pathology. All sites were hemostatic. We then carefully withdrew the scope. The patient does have gastroesophageal reflux disease grade II. She has one small area where she has a 1 cm Fatima's-like region. This is quite minor. I did take biopsies here to rule out true Fatima's disease. This site was hemostatic and then we fully removed the scope. The patient tolerated the procedure very well. There were no immediate complications. I have discussed all of the results with the patient's family and they understand the instructions. I have also given her a prescription for Protonix and Carafate to help heal the ulcer as well as the gastritis. With regards to her gallstones, our plans will be to continue her treatment due to her gastric symptoms and then we will plan to take out her gallbladder and I will plan to do a repeat EGD in approximately 3 months to ensure healing of the ulceration.
== END 2017-06-25 12:35 | disposition home or self-care (01) ==
LOC: SDC 07:48
PROVIDERS: ATTEND Surgery
PROC: 0DB68ZX Excision of Stomach, Via Natural or Artificial Opening Endoscopic, Diagnostic (ICD-10-PCS; principal; 2017-06-25)
DX: K29.70 Gastritis, unspecified, without bleeding (principal); K25.9 Gastric ulcer, unspecified as acute or chronic, without hemorrhage or perforation; K21.9 Gastro-esophageal reflux disease without esophagitis; K31.7 Polyp of stomach and duodenum
CPT/HCPCS: 00740; 36415; 88305; J2250; J2704

== ENCOUNTER 2017-09-12 13:08 | Emergency (ER) | payer BC ==
[2017-09-12] MEDS ORDERED: TORAdol 30 mg Injection IV ONE (14:03)
[2017-09-12] MEDS ORDERED: Sodium Chloride 0.9% 1000 ML 1,000 ML IV STA (14:03)
[2017-09-12] MEDS ORDERED: Pepcid 20 MG VIAL IV ONE ×2 (14:03→14:21)
[2017-09-12] MEDS ORDERED: Zofran 4 MG/2 ML VIAL IV ONE (14:03)
--- NOTE | 2017-09-12 14:03 | ERPHSYRPT ---
- History of Present Illness Time Seen by Provider: 09/12/17 13:58 Source: patient, family Exam Limitations: no limitations Patient Subjective Stated Complaint: pt here for weakness, headache, sob, cough , since friday, with low grade fever, loose stools, vomited x1 Triage Nursing Assessment: pt alert, resp easy, chest clear , has congested sounding cough, skin w/d pink Physician History: The patient is a 47-year-old female with her with multiple complaints. She is a relatively poor historian so much a detailed history is provided by her . She complains of a cough that started 4 days ago with a fever. She's been feeling weak, tired, and sleeping a lot. She vomited this morning. She's had a headache and backache. She denies shortness of breath. Her past medical history is significant for pneumonia this summer, frequent UTIs, new onset of asthma, hypothyroidism, GERD, and high cholesterol. Timing/Duration: day(s) (4) Severity: moderate Modifying Factors: Improves With: nothing Associated Symptoms: nausea, vomiting, cough, fever, headaches, loss of appetite Allergies/Adverse Reactions: codeine Adverse Reaction (Verified 09/12/17 13:23) Vomiting Home Medications: Budesonide/Formoterol Fumarate [Symbicort 160-4.5 Mcg Inhaler] 1 puff DAILY [History] PANTOPRAZOLE 40 mg Tablet [Protonix 40MG Tablet] 40 mg DAILY 09/12/17 [ History] Pravastatin Sodium [Pravastatin Sodium] 20 mg DAILY 09/12/17 [History] Sucralfate [Sucralfate] 1 gm QID 09/12/17 [History] Hx Tetanus, Diphtheria Vaccination/Date Given: Yes Hx Influenza Vaccination/Date Given: No Hx Pneumococcal Vaccination/Date Given: No Immunizations Up to Date: Yes - Review of Systems Constitutional: Fever, Fatigue, Malaise Eyes: No Symptoms Ears, Nose, & Throat: Throat Pain Respiratory: Cough Cardiac: No Chest Pain, No Edema, No Syncope Abdominal/Gastrointestinal: Nausea, Vomiting, No Diarrhea Genitourinary Symptoms: No Dysuria Musculoskeletal: Myalgias Skin: No Rash Neurological: Headache Psychological: No Symptoms Endocrine: No Symptoms Hematologic/Lymphatic: No Symptoms Immunological/Allergic: No Symptoms All Other Systems: Reviewed and Negative - Past Medical History Pertinent Past Medical History: No Neurological History: No Pertinent History ENT History: No Pertinent History Cardiac History: High Cholesterol Respiratory History: Pneumonia Endocrine Medical History: Hypothyroidism Musculoskeletal History: Fractures GI Medical History: No Pertinent History History: Other Psycho-Social History: No Pertinent History Female Reproductive Disorders: No Pertinent History Other Medical History: STATES HOSPITALIZED A CHILD FOR KIDNEY PROBLEMS BUT UNSURE OF DETAILS, ANKLE FRACTURE - Past Surgical History Past Surgical History: Yes Neuro Surgical History: No Pertinent History Cardiac: No Pertinent History Respiratory: No Pertinent History Gastrointestinal: Appendectomy Genitourinary: No Pertinent History Musculoskeletal: Orthopedic Surgery Female Surgical History: No Pertinent History Other Surgical History: ANKLE FRACTURE-hardware - Social History Smoking Status: Never smoker Exposure to second hand smoke: No Drug Use: none Patient Lives Alone: No - Female History Hx Last Menstrual Period: week ago Hx Now: No - Nursing Vital Signs Nursing Vital Signs: Initial Vital Signs Temperature 97.7 F 09/12/17 13:19 Pulse Rate 101 H 09/12/17 13:19 Respiratory Rate 18 09/12/17 13:19 Blood Pressure 108/73 09/12/17 13:19 O2 Sat by Pulse Oximetry 97 09/12/17 13:19 Pain Scale Pain Intensity 6 - Physical Exam General Appearance: moderate distress, lethargy, obese Eye Exam: PERRL/EOMI, eyes nml inspection Ears, Nose, Throat Exam: normal ENT inspection, TMs normal, pharynx normal, moist mucous membranes Neck Exam: normal inspection, non-tender, supple, full range of motion Respiratory Exam: diminished breath sounds Cardiovascular Exam: regular rate/rhythm, normal heart sounds, normal peripheral pulses Gastrointestinal/Abdomen Exam: soft, normal bowel sounds, No tenderness, No mass Pelvic Exam: not done Rectal Exam: not done Back Exam: muscle spasm (right lumbar paraspinous), No vertebral tenderness, No point tenderness Extremity Exam: normal inspection, normal range of motion, pelvis stable Neurologic Exam: alert, oriented x 3, cooperative, normal mood/affect, nml cerebellar function, nml station & gait, sensation nml, depressed mood/affect, No motor deficits Skin Exam: normal color, warm, dry, No rash Lymphatic Exam: No adenopathy SpO2 Interpretation: normal SpO2: 97 Oxygen Delivery: Room Air - Radiology Exams Chest X-ray Interpretation: Reviewed by me, Negative (per Dr Chowdhury.) Ordered Tests: Active Orders 24 hr Category Date Time Status IV Insertion STAT Care 09/12/17 14:03 Active CHEST 2 VIEWS (PA AND LAT) Stat Exams 09/12/17 14:04 Completed BLOOD CULTURE Stat Lab 09/12/17 14:24 Received CBC W DIFF Stat Lab 09/12/17 14:24 Completed CMP Stat Lab 09/12/17 14:24 Completed HCG QUALITATIVE,SERUM Stat Lab 09/12/17 14:24 Completed Lactic Acid Stat Lab 09/12/17 14:40 Completed TROPONIN Q3H Lab 09/12/17 14:40 Completed TROPONIN Q3H Lab 09/12/17 17:15 Ordered TROPONIN Q3H Lab 09/12/17 20:15 Ordered TROPONIN Q3H Lab 09/12/17 23:15 Ordered TROPONIN Q3H Lab 09/13/17 02:15 Ordered UA W/RFX UR CULTURE Stat Lab 09/12/17 15:30 Received Respiratory Nebulizer STAT RT 09/12/17 14:06 Completed Medication Summary Discontinued Medications Generic Name Dose Route Start Last Admin Trade Name Freq PRN Reason Stop Dose Admin Albuterol Sulfate 2.5 mg 09/12/17 14:05 09/12/17 14:28 Proventil 2.5 Mg/3 Ml Neb IH 09/12/17 14:06 2.5 mg STAT ONE Administration Albuterol Sulfate Confirm 09/12/17 14:26 Proventil 2.5 Mg/3 Ml Neb Administered 09/12/17 14:27 Dose 2.5 mg IH .STK-MED ONE Famotidine 20 mg 09/12/17 14:03 09/12/17 14:28 Pepcid 20 Mg Vial IV 09/12/17 14:04 20 mg STAT ONE Administration Famotidine Confirm 09/12/17 14:21 Pepcid 20 Mg Vial Administered 09/12/17 14:22 Dose 20 mg IV .STK-MED ONE Sodium Chloride 1,000 mls @ 999 mls/hr 09/12/17 14:03 09/12/17 14:26 Sodium Chloride 0.9% 1000 Ml IV 09/12/17 15:03 999 mls/hr .Q1H1M STA Administration Sodium Chloride Confirm 09/12/17 14:21 Sodium Chloride 0.9% 1000 Ml Administered 09/12/17 14:22 Dose 1,000 mls @ ud .ROUTE .STK-MED ONE Ketorolac Tromethamine 30 mg 09/12/17 14:03 09/12/17 14:33 Toradol 30 Mg Injection IV 09/12/17 14:04 30 mg STAT ONE Administration Ketorolac Tromethamine Confirm 09/12/17 14:21 Toradol 30 Mg Injection Administered 09/12/17 14:22 Dose 30 mg .ROUTE .STK-MED ONE Ondansetron HCl 4 mg 09/12/17 14:03 09/12/17 14:32 Zofran 4 Mg/2 Ml Vial IV 09/12/17 14:04 4 mg STAT ONE Administration Ondansetron HCl Confirm 09/12/17 14:21 Zofran 4 Mg/2 Ml Vial Administered 09/12/17 14:22 Dose 4 mg .ROUTE .STK-MED ONE Lab/Rad Data: Laboratory Result Diagrams 09/12/17 14:24 09/12/17 14:24 Laboratory Results 09/12/17 09/12/17 09/12/17 Range/Units 15:30 14:40 14:40 WBC (4.0-10.5) K/mm3 RBC (4.1-5.4) M/mm3 Hgb (12.0-16.0) gm/dl Hct (35-47) % MCV (78-100) fl MCH (26-32) pg MCHC (32-36) g/dl RDW (11.5-14.0) % Plt Count (150-450) K/mm3 MPV (6-9.5) fl Gran % (36.0-66.0) % Lymphocytes % (24.0-44.0) % Monocytes % (0.0-12.0) % Eosinophils % (0.00-5.0) % Basophils % (0.0-0.4) % Basophils # (0-0.4) Sodium (136-145) mEq/L Potassium (3.5-5.1) mEq/L Chloride (98-107) mEq/L Carbon Dioxide (21-32) mEq/L Anion Gap (5-15) MEQ/L BUN (9-20) mg/dL Creatinine (0.55-1.30) mg/dl Estimated GFR ML/MIN Glucose (70-110) MG/DL Lactic Acid 0.8 (0.4-2.0) Calcium (8.5-10.1) mg/dL Total Bilirubin (0.2-1.0) mg/dL AST (15-37) U/L ALT (12-78) U/L Alkaline Phosphatase (46-116) U/L Troponin I < 0.017 (0.000-0.056) ng/ml Serum Total Protein (6.4-8.2) gm/dL Albumin (3.4-5.0) g/dL Serum , Qual (Negative) Ur Collection Type Pending Urine Color Pending Urine Appearance Pending Urine pH Pending Ur Specific [place] Pending Urine Protein Pending Urine Ketones Pending Urine Blood Pending Urine Nitrite Pending Urine Bilirubin Pending Urine Urobilinogen Pending Ur Leukocyte Esterase Pending Urine Culture Reflexed Pending Urine Glucose Pending Influenza Type A Ag (NEGATIVE) Influenza Type B Ag (NEGATIVE) RSV (PCR) (Negative) Specimen Received Pending 09/12/17 09/12/17 09/12/17 Range/Units 14:24 14:24 14:24 WBC (4.0-10.5) K/mm3 RBC (4.1-5.4) M/mm3 Hgb (12.0-16.0) gm/dl Hct (35-47) % MCV (78-100) fl MCH (26-32) pg MCHC (32-36) g/dl RDW (11.5-14.0) % Plt Count (150-450) K/mm3 MPV (6-9.5) fl Gran % (36.0-66.0) % Lymphocytes % (24.0-44.0) % Monocytes % (0.0-12.0) % Eosinophils % (0.00-5.0) % Basophils % (0.0-0.4) % Basophils # (0-0.4) Sodium 140 (136-145) mEq/L Potassium 4.2 (3.5-5.1) mEq/L Chloride 104 (98-107) mEq/L Carbon Dioxide 28.4 (21-32) mEq/L Anion Gap 11.6 (5-15) MEQ/L BUN 12 (9-20) mg/dL Creatinine 1.07 (0.55-1.30) mg/dl Estimated GFR 58 ML/MIN Glucose 112 H (70-110) MG/DL Lactic Acid (0.4-2.0) Calcium 9.2 (8.5-10.1) mg/dL Total Bilirubin 0.30 (0.2-1.0) mg/dL AST 30 (15-37) U/L ALT 35 (12-78) U/L Alkaline Phosphatase 83 (46-116) U/L Troponin I (0.000-0.056) ng/ml Serum Total Protein 7.6 (6.4-8.2) gm/dL Albumin 3.5 (3.4-5.0) g/dL Serum , Qual NEGATIVE (Negative) Ur Collection Type Urine Color Urine Appearance Urine pH Ur Specific [place] Urine Protein Urine Ketones Urine Blood Urine Nitrite Urine Bilirubin Urine Urobilinogen Ur Leukocyte Esterase Urine Culture Reflexed Urine Glucose Influenza Type A Ag POSITIVE (NEGATIVE) Influenza Type B Ag NEGATIVE (NEGATIVE) RSV (PCR) NEGATIVE (Negative) Specimen Received 09/12/17 Range/Units 14:24 WBC 3.7 L (4.0-10.5) K/mm3 RBC 4.33 (4.1-5.4) M/mm3 Hgb 10.4 L (12.0-16.0) gm/dl Hct 34.2 L (35-47) % MCV 79.0 (78-100) fl MCH 24.0 L (26-32) pg MCHC 30.4 L (32-36) g/dl RDW 13.8 (11.5-14.0) % Plt Count 199 (150-450) K/mm3 MPV 8.4 (6-9.5) fl Gran % 59.2 (36.0-66.0) % Lymphocytes % 27.2 (24.0-44.0) % Monocytes % 9.8 (0.0-12.0) % Eosinophils % 3.3 (0.00-5.0) % Basophils % 0.5 (0.0-0.4) % Basophils # 0.02 (0-0.4) Sodium (136-145) mEq/L Potassium (3.5-5.1) mEq/L Chloride (98-107) mEq/L Carbon Dioxide (21-32) mEq/L Anion Gap (5-15) MEQ/L BUN (9-20) mg/dL Creatinine (0.55-1.30) mg/dl Estimated GFR ML/MIN Glucose (70-110) MG/DL Lactic Acid (0.4-2.0) Calcium (8.5-10.1) mg/dL Total Bilirubin (0.2-1.0) mg/dL AST (15-37) U/L ALT (12-78) U/L Alkaline Phosphatase (46-116) U/L Troponin I (0.000-0.056) ng/ml Serum Total Protein (6.4-8.2) gm/dL Albumin (3.4-5.0) g/dL Serum , Qual (Negative) Ur Collection Type Urine Color Urine Appearance Urine pH Ur Specific [place] Urine Protein Urine Ketones Urine Blood Urine Nitrite Urine Bilirubin Urine Urobilinogen Ur Leukocyte Esterase Urine Culture Reflexed Urine Glucose Influenza Type A Ag (NEGATIVE) Influenza Type B Ag (NEGATIVE) RSV (PCR) (Negative) Specimen Received - Progress Progress: improved Counseled pt/family regarding: lab results, diagnosis, rad results - Departure Time of Disposition: 15:45 Departure Disposition: Home Clinical Impression: Influenza A Condition: Stable Critical Care Time: No Referrals: FOX SKINNER MD [Primary Care Provider] - Additional Instructions: You have an influenza A infection. You were given famotidine 20 mg, Zofran 4 mg , Toradol 30 mg, and fluids by IV in the ER. You were also given an albuterol nebulizer treatment. Take prednisone 60 mg daily for 5 days. You may also take Tylenol and ibuprofen as needed for relief. Stay well hydrated. Follow- up as needed. Prescriptions: Prednisone 20 mg [Deltasone 20 mg] 3 tab PO DAILY #15 tablet
[2017-09-12] MEDS ORDERED: PROVENTIL 2.5 MG/3 ML NEB IH ONE ×2 (14:05→14:26)
[2017-09-12] MEDS ORDERED: Sodium Chloride 0.9% 1000 ML 1,000 ML ONE (14:21)
[2017-09-12] MEDS ORDERED: TORAdol 30 mg Injection ONE (14:21)
[2017-09-12] MEDS ORDERED: Zofran 4 MG/2 ML VIAL ONE (14:21)
--- NOTE | 2017-09-12 14:27 | XRAY ---
Indication: Cough and congestion. Comparison: April 30, 2017. PA/lateral chest again demonstrates normal heart and lungs. Bony thorax intact. No new/acute findings.
[2017-09-12 14:28] LABS: BASOPHIL % 0.5 % (0.0-0.4); Basophil (Absolute #) 0.02 (0-0.4); Eosinophil % 3.3 % (0.00-5.0); Eosinophil (Absolute #) 0.12 (0-0.5); Granulocyte Absolute (ANC) 2.18 (1.4-6.9); Granulocytes % 59.2 % (36.0-66.0); Hematocrit 34.2 % (35-47); Hemoglobin 10.4 gm/dl (12.0-16.0); Lymphocytes % 27.2 % (24.0-44.0); Mean Corpuscular Hgb Concent. 30.4 g/dl (32-36); Mean Platelet Volume 8.4 fl (6-9.5); Monocyte (Absolute #) 0.36 (0.0-1.3); Monocytes % 9.8 % (0.0-12.0); Platelet Count 199 K/mm3 (150-450); Red Blood Count 4.33 M/mm3 (4.1-5.4); Red Cell Distribution Width 13.8 % (11.5-14.0); White Blood Count 3.7 K/mm3 (4.0-10.5)
[2017-09-12 14:47] LABS: ALBUMIN 3.5 g/dL (3.4-5.0); ANION GAP 11.6 MEQ/L (5-15); BILIRUBIN,TOTAL 0.3 mg/dL (0.2-1.0); Calcium 9.2 mg/dL (8.5-10.1); Carbon Dioxide 28.4 mEq/L (21-32); Creatinine 1 1.07 mg/dl (0.55-1.30); Potassium 4.2 mEq/L (3.5-5.1); Total Protein 7.6 gm/dL (6.4-8.2)
[2017-09-12 15:13] VITALS: BP 111/64; PULSE 96
[2017-09-12 15:30] LABS: INFLUENZA A POSITIVE (NEGATIVE); INFLUENZA B NEGATIVE (NEGATIVE); RESPIRATORY SYNCTIAL VIRUS NEGATIVE (Negative)
[2017-09-12 15:43] LABS: Appearance SLIGHTLY CLOUDY (CLEAR)
[2017-09-12 15:44] LABS: Bilirubin NEGATIVE (NEGATIVE); Blood NEGATIVE Ery/ul (0-5); Glucose NEGATIVE (NEGATIVE); Ketones NEGATIVE (NEGATIVE); Leukocyte Esterase TRACE (NEGATIVE); Nitrite POSITIVE (NEGATIVE); Protein,Urine Dip TRACE (Negative); Specific Gravity 1.015 (1.005-1.025); Urobilinogen NORMAL mg/dL (0-1)
[2017-09-12 15:48] VITALS: O2SAT 97
[2017-09-12 15:54] LABS: Bacteria MANY /HPF (NEGATIVE); Epithelial Cells MODERATE /HPF (FEW)
== END 2017-09-12 15:50 | disposition home or self-care (01) ==
LOC: ED 13:08
DX: J11.1 Influenza due to unidentified influenza virus with other respiratory manifestations (principal)
CPT/HCPCS: 36000; 36415; 71020; 80053; 81000; 83605; 84484; 84703; 85025; 87040; 87077; 87086; 87186; 87631; 94640; 96360; 96374; 96375; 99284; J1885; J2405; A9270-GY

== ENCOUNTER 2023-03-26 06:49 | Day surgery (SDC) | payer BC ==
[2023-03-26] MEDS ORDERED: Decadron 4 MG INJ IV ONE (06:50)
[2023-03-26] MEDS ORDERED: Depo-Medrol 40 MG/ML IM ONE (06:50)
[2023-03-26] MEDS ORDERED: LIDOCAINE HCL 1% 50 MG/5 ML VL PF IJ ONE (06:50)
[2023-03-26] MEDS ORDERED: Sodium Chloride 0.9(Preservative Free) 10 ML IJ ONE (06:50)
[2023-03-26 07:07] LABS: HCG URINE TEST NEGATIVE (NEGATIVE)
[2023-03-26] MEDS ORDERED: DIPRIVAN 200 MG/20 ML IV ONE ×2 (08:36→08:55)
[2023-03-26] MEDS ORDERED: Lactated Ringers 1,000 ML IV ONE (13:06)
--- NOTE | 2023-03-26 18:41 | XRAY ---
Indication: Caudal RAHUL. Intraoperative fluoroscopy provided for 1 minutes 22 seconds. 2 digital spot image submitted for interpretation demonstrates caudal needle tip projecting mid sacrum. Small amount of contrast injected for needle tip placement. Correlate with intraoperative findings/report.
--- NOTE | 2023-03-26 18:44 | XRAY ---
Indication: Bilateral piriformis injection. Intraoperative fluoroscopy provided for 28 seconds. 2 digital spot image submitted for interpretation demonstrates posterior needle tip projecting over the expected left and right piriformis muscle. Small amount of contrast injected for needle tip placement. Correlate with intraoperative findings/report.
--- NOTE | 2023-03-26 18:55 | XRAY ---
28 seconds of fluoroscopy was used in surgery for a bilateral piriformis injection.
--- NOTE | 2023-03-26 18:55 | XRAY ---
One minute and 22 seconds of fluoroscopy was used in surgery for a caudal RAHUL.
== END 2023-03-26 09:25 | disposition home or self-care (01) ==
LOC: SDC-PAIN 06:49
PROVIDERS: ATTEND Psychiatry & Neurology Pain Medicine
DX: M54.16 Radiculopathy, lumbar region (principal); M79.18 Myalgia, other site; Z79.899 Other long term (current) drug therapy
CPT/HCPCS: 20552; 62323; 72170; 72220; 77002; 77003; 81025; J1030; J1100; J2001; J2704; Q9966